=== PATIENT | male | born 1965 | race Caucasian/White ===

== ENCOUNTER → 2016-05-21 | Day surgery (SDC) | payer OTHER ==
[~2016-05-21] VITALS: Ht 167.6 cm; Wt 64.4 kg
[~2016-05-21] MED LIST: ANDROGEL75 GM; ISENTRESS400 M1 PO; LO-DOSE ASPIRIN81 MG PO; PRAVACHOL20 M2 PO; REYATAZ200 MG PO; VALTREX1000 MG PO
--- NOTE | 2016-05-21 15:14 | Operative Report ---
Operative/Inv Procedure Report Surgery Date: 05/21/16 Name of Procedure: left renal ESWL, fluoroscopy. Cystoscopy. Pre-Operative Diagnosis: Gross hematuria. Left kidney stone. Right groin pain. Post-Operative Diagnosis: Same Estimated Blood Loss: scant Surgeon/Atomic Process Engineer: JACLYN GOYAL MD Anesthesia: moderate sedation Specimens: None Complications: None Operative/Procedure Note Note: The patient was taken to the operating room and placed on the ESWL table in supine position. With the patient awake and participating, timeout was performed to confirm correct identity, procedure, laterality, anesthesia, and other pertinent celine-operative information. After adequate anesthesia, the patient was positioned so that the patient's left flank was positioned over the table cut-out, overlying the dome of the treatment head. Once the patient was adequately sedated, fluoroscopy, as well as Renal ultrasound was used to locate the LEFT renal stone. Renal US confirmed the presence of the stone which measured it to be approximately 6 mm MP stone. The stone was faintly visible with fluoroscopy. Renal US revealed, no hydronephrosis, and no solid tumor, and presence of the stone. The position of the stone was optimized by using fluoroscopy in AP and oblique views;placing the stone within the ESWL c-arm crosshairs. Once the stone's position was optimized, the LEFT renal E.S.W.L. was initiated at low energy level. After noting the patient's tolerance to the shockwaves, the intensitiy was ramped up to maximum level. At the end of the procedure, the left renal stone had dissintegrated as visualized on fluoroscopy. Of note, a total of 2500 shockwaves were delivered to the stone. The patient was then frog legged, draped and prepped in the usual surgical fashion. A 22 [place] cystoscope sheath with 30 angle lens was inserted into the urethra without difficulty. The cystoscope was advanced, and upon entering the bladder, the bladder was noted to be free of tumor free of stone. The cystoscope was then removed. The patient tolerated the procedures well, was awakened, then taken to recovery in satisfactory condition via stretcher. The patient was dischared home with pain medications, diet orders, and intructions to catch fragments by straining the urine. The patient to to have follow-up renal ultrasound and KUB in 1 to 2 weeks, prior to follow-up visit in my office. He will then proceed with metabolic stone work-up. Findings: 6 mm left mid pole stone. BPH with trabeculated bladder. No evidence of bladder tumor or stone. Discharge Disposition: Same Day Admissions CC: JYOTSNA MADERA,JACLYN
== END ==
LOC: STS 02:25
DX: N20.0 Calculus of kidney (principal); R31.0 Gross hematuria; R10.30 Lower abdominal pain, unspecified; Z21 Asymptomatic human immunodeficiency virus [HIV] infection status; Z87.891 Personal history of nicotine dependence
CPT/HCPCS: J0696; J2250